=== PATIENT | female | born 1960 | race Caucasian/White ===

== ENCOUNTER 2017-06-16 16:49 | Emergency (ER) | payer MEDICAID, OTHER ==
[2017-06-16] MEDS ORDERED: HYDROmorphone 0.5 MG/0.5 ML Syringe IM ONE (17:22)
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
[2017-06-16] MEDS ORDERED: oxyCODONE 5 MG Tab PO ONE (18:53)
[2017-06-16] MEDS ORDERED: Cyclobenzaprine 10 MG Tab PO ONE (20:51)
[2017-06-16 20:58] VITALS: BP 149/82
--- NOTE | 2017-06-19 09:02 | CR ---
Ankle Min 3V Lt, Foot Comp Min 3V Lt, Knee Min 4V Lt INDICATION: swelling on the lateral aspect of the ankle FINDINGS: Negative left ankle. Bipartite patella. Moderate medial compartment narrowing. Soft tissue swelling overlying the patella. Tiny knee effusion or synovitis. Mild bunion deformity. Degenerative narrowing first MTP joint. Left ankle, foot, and knee otherwise negative.
== END 2017-06-16 21:25 | disposition home or self-care (01) ==
LOC: JP.ED 16:49
DX: S82.002A Unspecified fracture of left patella, initial encounter for closed fracture (principal); S93.401A Sprain of unspecified ligament of right ankle, initial encounter; S20.219A Contusion of unspecified front wall of thorax, initial encounter; S20.01XA Contusion of right breast, initial encounter; S00.33XA Contusion of nose, initial encounter; Z79.82 Long term (current) use of aspirin; Z79.4 Long term (current) use of insulin; Z79.899 Other long term (current) drug therapy; Z91.048 Other nonmedicinal substance allergy status; Z88.2 Allergy status to sulfonamides; Z91.040 Latex allergy status; V43.62XA Car passenger injured in collision with other type car in traffic accident, initial encounter
CPT/HCPCS: 36415; 71250; 73564; 73610; 73630; 80053; 85025; 93005; 96374; 99285; A9270; J1170; 93010; 99284

== ENCOUNTER 2018-09-15 17:55 | Emergency (ER) | payer MEDICAID ==
[2018-09-15 18:08] VITALS: BP 183/94
[2018-09-15] MEDS ORDERED: Sodium Chloride 0.9% 10 ML Syringe FLUSH PRN (18:40)
[2018-09-15] MEDS ORDERED: HYDROmorphone 1 MG/ML Syringe IVPUSH ONE (18:40)
[2018-09-15] MEDS ORDERED: Prochlorperazine 10 MG/2 ML SDV IVPUSH ONE ×2 (18:41→19:42)
[2018-09-15] MEDS ORDERED: Sodium Chloride 0.9% 1,000 ML IV ONE (18:42)
--- NOTE | 2018-09-15 18:57 | EDM.PDOC ---
ED HPI GENERAL MEDICAL PROBLEM - General Chief Complaint: Headache Stated Complaint: HEADACHE Time Seen by Provider: 09/15/18 18:30 Source of Information: Reports: Patient History Limitations: Reports: No Limitations - History of Present Illness INITIAL COMMENTS - FREE TEXT/NARRATIVE: This lady is here for a headache which started last night. The headache is on the right side of her head. She is worried because she's had some strokes in the past but she's not had any kind of stroke symptoms with this. Specifically there's no visual problems she's had not having any weakness anywhere and except her right arm is chronically weak from a previous stroke. She's vomited a few times. Right Head Pain Score (Numeric/FACES): 9 - Related Data Allergies Allergy/AdvReac Type Severity Reaction Status Date / Time latex Allergy Hives Verified 09/15/18 18:07 red dye Allergy Hives Verified 09/15/18 18:07 Sulfa (Sulfonamide Allergy Cannot Verified 09/15/18 18:07 Antibiotics) Remember atorvastatin [From Lipitor] AdvReac Nausea Verified 09/15/18 18:07 Home Meds: Home Meds Aspirin 81 mg PO DAILY 01/31/17 [History] Clopidogrel [Plavix] 75 mg PO DAILY 01/31/17 [History] Cyanocobalamin (Vitamin B12) [Vitamin B12] 100 mcg PO DAILY 01/31/17 [History] Diazepam [Valium] 5 mg PO BID 01/31/17 [History] Estradiol 0.5 mg PO DAILY 01/31/17 [History] Ibuprofen 800 mg PO BID 01/31/17 [History] Insulin Glulisine [Apidra Solostar] 60 unit SQ QPM 01/31/17 [History] Ketoconazole [Ketoconazole 2%] 1 applic TOP BID 01/31/17 [History] Liraglutide [Victoza] 1.8 mg SUBCUT DAILY 01/31/17 [History] Lisinopril 5 mg PO DAILY 01/31/17 [History] Metoprolol Succinate [Toprol XL] 25 mg PO DAILY 01/31/17 [History] Morphine Sulfate 15 mg PO Q6HR PRN MDD 2 per day 01/31/17 [History] Morphine [MS Contin] 30 mg PO BID 01/31/17 [History] Rosuvastatin [Crestor] 40 mg PO DAILY 01/31/17 [History] levETIRAcetam [Keppra] 1,500 mg PO BID 01/31/17 [History] metFORMIN HCl [Metformin HCl] 500 mg PO BID 01/31/17 [History] Past Medical History HEENT History: Reports: Epistaxis, Impaired Vision Cardiovascular History: Reports: Arrhythmia, CAD, High Cholesterol, Hypertension Gastrointestinal History: Reports: Colon Polyp Genitourinary History: Reports: UTI, Recurrent [employer] History: Reports: Musculoskeletal History: Reports: Fracture Neurological History: Reports: CVA, Migraines, Seizure, TIA, Vertigo Endocrine/Metabolic History: Reports: Diabetes, Type II Hematologic History: Reports: Anticoagulation Therapy, Blood Transfusion(s) Oncologic (Cancer) History: Reports: Breast - Infectious Disease History Infectious Disease History: Reports: Chicken Pox, Measles, Mumps - Past Surgical History Head Surgeries/Procedures: Reports: None HEENT Surgical History: Reports: Tonsillectomy Cardiovascular Surgical History: Reports: None GI Surgical History: Reports: Appendectomy, Colonoscopy Female Surgical History: Reports: Hysterectomy Endocrine Surgical History: Reports: None Neurological Surgical History: Reports: None Musculoskeletal Surgical History: Reports: Other (See Below) Other Musculoskeletal Surgeries/Procedures:: screw in middle left finger Oncologic Surgical History: Reports: Lobectomy Dermatological Surgical History: Reports: None Social & Family History - Tobacco Use Smoking Status *Q: Current Every Day Smoker Years of Tobacco use: 40 Packs/Tins Daily: 0.5 Used Tobacco, but Quit: No - Caffeine Use Caffeine Use: Reports: Soda - Recreational Drug Use Recreational Drug Use: No ED ROS GENERAL - Review of Systems Review Of Systems: See Below Constitutional: Reports: No Symptoms HEENT: Reports: No Symptoms Respiratory: Reports: No Symptoms Cardiovascular: Reports: No Symptoms Endocrine: Reports: No Symptoms GI/Abdominal: Reports: Vomiting : Reports: No Symptoms Musculoskeletal: Reports: No Symptoms Skin: Reports: No Symptoms Neurological: Reports: Headache, Pre-Existing Deficit. Denies: Numbness, Weakness, Change in Speech, Gait Disturbance Psychiatric: Reports: No Symptoms Hematologic/Lymphatic: Reports: No Symptoms - Physical Exam Exam: See Below Exam Limited By: No Limitations General Appearance: Alert, WD/WN, Mild Distress Eye Exam: Bilateral Eye: EOMI, Normal Fundi (No papilledema seen) Ears: Normal External Exam Nose: Normal Inspection Throat/Mouth: Normal Inspection, Normal Oropharynx Head Exam: Atraumatic Neck: Normal Inspection Respiratory/Chest: Lungs Clear Cardiovascular: Regular Rate, Rhythm, No Murmur Neuro Exam (Abbreviated): Alert, Oriented, CN II-XII Intact, Normal Cognition, Normal Reflexes, No Motor/Sensory Deficits, Other (Couldn't really do left patellar reflex due to previous injury) Extremities: Normal Inspection Psychiatric: Normal Affect Skin Exam: Warm, Dry Course - Vital Signs Last Recorded V/S: Last Vital Signs Temp 36.3 C 09/15/18 18:16 Pulse 97 09/15/18 18:16 Resp 16 09/15/18 18:16 BP 183/94 H 09/15/18 18:16 Pulse Ox 98 09/15/18 18:16 - Orders/Labs/Meds Orders: Active Orders 24 hr Category Date Time Status Head wo Cont [CT] Stat Exams 09/15/18 18:42 Taken Sodium Chloride 0.9% [Saline Flush] Med 09/15/18 18:40 Active 10 ml FLUSH ASDIRECTED PRN Saline Lock Insert [OM.PC] Urgent Oth 09/15/18 18:40 Ordered Medication Orders Sodium Chloride (Saline Flush) 10 ml FLUSH ASDIRECTED PRN PRN Reason: Keep Vein Open Last Admin: 09/15/18 18:50 Dose: 10 ml Labs: Laboratory Tests 09/15/18 09/15/18 09/15/18 Range/Units 18:55 18:55 18:55 WBC 11.4 H (4.5-11.0) K/uL RBC 5.81 H (3.30-5.50) M/uL Hgb 17.0 H D (12.0-15.0) g/dL Hct 49.6 H (36.0-48.0) % MCV 85 (80-98) fL MCH 29 (27-31) pg MCHC 34 (32-36) % Plt Count 280 (150-400) K/uL Neut % (Auto) 55 (36-66) % Lymph % (Auto) 38 (24-44) % Moffat % (Auto) 5 (2-6) % Eos % (Auto) 2 (2-4) % Baso % (Auto) 0 (0-1) % PT 11.0 (9.5-12.0) sec INR 1.00 (0.80-1.20) Sodium 142 (140-148) mmol/L Potassium 3.4 L (3.6-5.2) mmol/L Chloride 104 (100-108) mmol/L Carbon Dioxide 26 (21-32) mmol/L Anion Gap 15.4 H (5.0-14.0) mmol/L BUN 8 D (7-18) mg/dL Creatinine 0.7 (0.6-1.0) mg/dL Est Cr Clr Drug Dosing 62.16 mL/min Estimated GFR (MDRD) > 60 (>60) Glucose 110 H (74-106) mg/dL Calcium 9.0 (8.5-10.1) mg/dL Meds: Medications Generic Name Dose Route Start Last Admin Trade Name Freq PRN Reason Stop Dose Admin Sodium Chloride 10 ml 09/15/18 18:40 09/15/18 18:50 Saline Flush FLUSH 10 ml ASDIRECTED PRN Administration Keep Vein Open Discontinued Medications Generic Name Dose Route Start Last Admin Trade Name Freq PRN Reason Stop Dose Admin Diphenhydramine HCl 50 mg 09/15/18 19:42 09/15/18 20:11 Benadryl IVPUSH 09/15/18 19:43 50 mg ONETIME ONE Administration Hydromorphone HCl 1 mg 09/15/18 18:40 09/15/18 18:49 Dilaudid IVPUSH 09/15/18 18:41 1 mg ONETIME ONE Administration Sodium Chloride 1,000 mls @ 999 mls/hr 09/15/18 18:42 09/15/18 18:49 Normal Saline IV 09/15/18 19:42 999 mls/hr .BOLUS ONE Administration Prochlorperazine Edisylate 5 mg 09/15/18 18:41 09/15/18 18:49 Compazine IVPUSH 09/15/18 18:42 5 mg ONETIME ONE Administration Prochlorperazine Edisylate 5 mg 09/15/18 19:42 09/15/18 20:12 Compazine IVPUSH 09/15/18 19:43 5 mg ONETIME ONE Administration - Re-Assessments/Exams Free Text/Narrative Re-Assessment/Exam: 09/15/18 18:57 An IV was established she was given Dilaudid 1 mg and 5 mg Compazine as well as [address] IV [address] saline[address] is pending. We'll discuss possibly doing a lumbar puncture when the CT results are back Free Text/Narrative Re-Assessment/Exam: 09/15/18 20:39 This lady received Compazine 5 mg and Benadryl 25 mg IV as well as Dilaudid 1 mg and 1 L IV normal saline. This only gave partial relief of the headache but a second 5 mg dose of the Compazine gave her good relief. She feels like she is ready to go home. The head CT was negative. I discussed with her that the head CT doesn't absolutely completely rule out any bleeding and it loses its sensitivity after 12 hours or so. She didn't want to do an LP. I think if the tomorrow she is headache free then there is nothing to worry about that if the headache continues then she should follow-up with her doctor an LP might be considered. Departure - Departure Time of Disposition: 20:42 Disposition: Home, Self-Care 01 Condition: Fair Clinical Impression: Migraine - Discharge Information Referrals: Bob Zee MD [Primary Care Provider] - Forms: ED Department Discharge Additional Instructions: The medicine he received will continue to make you very sleepy for the next 12 hours or so. You can take your own pain medications also. The head CT was normal but it doesn't absolutely rule out any bleeding. To completely rule out any bleeding he would have to have a lumbar puncture where you run and needle up into the spine and draw some fluid off around the spinal cord to check for any blood. So if you continue to have a headache then you should follow-up with your Dr. or return to the ER and a lumbar puncture could be considered. - My Orders Last 24 Hours: My Active Orders 09/15/18 18:40 Sodium Chloride 0.9% [Saline Flush] 10 ml FLUSH ASDIRECTED PRN Saline Lock Insert [OM.PC] Urgent 09/15/18 18:42 Head wo Cont [CT] Stat - Assessment/Plan Last 24 Hours: My Active Orders 09/15/18 18:40 Sodium Chloride 0.9% [Saline Flush] 10 ml FLUSH ASDIRECTED PRN Saline Lock Insert [OM.PC] Urgent 09/15/18 18:42 Head wo Cont [CT] Stat
[2018-09-15] MEDS ORDERED: diphenhydrAMINE 50 MG/ML SDV IVPUSH ONE (19:42)
== END 2018-09-15 20:58 | disposition home or self-care (01) ==
LOC: JP.ED 17:55
DX: G43.909 Migraine, unspecified, not intractable, without status migrainosus (principal); I10 Essential (primary) hypertension; E11.9 Type 2 diabetes mellitus without complications; F17.210 Nicotine dependence, cigarettes, uncomplicated; Z88.8 Allergy status to other drugs, medicaments and biological substances; Z91.040 Latex allergy status; Z88.2 Allergy status to sulfonamides; Z79.82 Long term (current) use of aspirin; Z79.899 Other long term (current) drug therapy
CPT/HCPCS: 36415; 70450; 80048; 85025; 85610; 96361; 96374; 96375; 96376; 99284; J0780; J1170; J1200; J7030

== ENCOUNTER 2019-05-11 16:24 | Emergency (ER) | payer MEDICAID ==
[2019-05-11 17:38] VITALS: BP 184/95; PULSE 100
[2019-05-11] MEDS ORDERED: Ketorolac 60 MG/2 ML SDV IM ONE (18:07)
[2019-05-11] MEDS ORDERED: Cyclobenzaprine 10 MG Tab PO ONE (18:07)
[2019-05-11] MEDS ORDERED: Acetaminophen 500 MG Tab PO ONE (18:07)
--- NOTE | 2019-05-11 18:16 | EDM.PDOC ---
ED HPI GENERAL MEDICAL PROBLEM - General Chief Complaint: Neck Problem Stated Complaint: PULLED MUSCLES IN NECK AND BACK Time Seen by Provider: 05/11/19 17:55 Source of Information: Reports: Patient, Old Records History Limitations: Reports: No Limitations - History of Present Illness INITIAL COMMENTS - FREE TEXT/NARRATIVE: 58 yo female presents with neck and upper back pain since Monday when she was working pulling weeds in her garden. Has tried some ice and heat so far without relief. Has not been to see her primary for this. Did not fall. Is no longer on the narcotic pain meds that were in her hospital record, stopped in January. Here with her . Not sleeping due to the pain. Onset: Gradual Onset Date: 05/07/19 Duration: Day(s):, Constant Location: Reports: Neck, Back (upper) Quality: Reports: Ache, Other (stiff) Severity: Moderate Improves with: Reports: Rest Worsens with: Reports: Movement Context: Reports: Other (see HPI) Associated Symptoms: Reports: No Other Symptoms Treatments [employer]E [employer] MOULDER: Reports: Other (see below) (heat/cold) - Related Data Allergies Allergy/AdvReac Type Severity Reaction Status Date / Time latex Allergy Hives Verified 05/11/19 17:48 red dye Allergy Hives Verified 05/11/19 17:48 Sulfa (Sulfonamide Allergy Cannot Verified 05/11/19 17:48 Antibiotics) Remember atorvastatin [From Lipitor] AdvReac Nausea Verified 05/11/19 17:48 Home Meds: Home Meds Aspirin 81 mg PO DAILY 01/31/17 [History] Clopidogrel [Plavix] 75 mg PO DAILY 01/31/17 [History] Cyanocobalamin (Vitamin B12) [Vitamin B12] 100 mcg PO DAILY 01/31/17 [History] Diazepam [Valium] 5 mg PO BID 01/31/17 [History] Estradiol 0.5 mg PO DAILY 01/31/17 [History] Ibuprofen 800 mg PO BID 01/31/17 [History] Ketoconazole [Ketoconazole 2%] 1 applic TOP BID 01/31/17 [History] Liraglutide [Victoza] 1.8 mg SUBCUT DAILY 01/31/17 [History] Lisinopril 5 mg PO DAILY 01/31/17 [History] Metoprolol Succinate [Toprol XL] 25 mg PO DAILY 01/31/17 [History] Rosuvastatin [Crestor] 40 mg PO DAILY 01/31/17 [History] levETIRAcetam [Keppra] 1,500 mg PO BID 01/31/17 [History] metFORMIN HCl [Metformin HCl] 500 mg PO BID 01/31/17 [History] Insulin Aspart [NovoLOG] 05/11/19 [History] Insulin Degludec [Tresiba Flextouch U-200] 05/11/19 [History] Past Medical History HEENT History: Reports: Epistaxis, Impaired Vision Cardiovascular History: Reports: Arrhythmia, CAD, High Cholesterol, Hypertension Gastrointestinal History: Reports: Colon Polyp Genitourinary History: Reports: UTI, Recurrent AB 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: Musculoskeletal History: Reports: Fracture Neurological History: Reports: CVA, Migraines, Seizure, TIA, Vertigo Endocrine/Metabolic History: Reports: Diabetes, Type II Hematologic History: Reports: Anticoagulation Therapy, Blood Transfusion(s) Oncologic (Cancer) History: Reports: Breast - Infectious Disease History Infectious Disease History: Reports: Chicken Pox, Measles, Mumps - Past Surgical History Head Surgeries/Procedures: Reports: None HEENT Surgical History: Reports: Tonsillectomy Cardiovascular Surgical History: Reports: None GI Surgical History: Reports: Appendectomy, Colonoscopy Female Surgical History: Reports: Hysterectomy Endocrine Surgical History: Reports: None Neurological Surgical History: Reports: None Musculoskeletal Surgical History: Reports: Other (See Below) Other Musculoskeletal Surgeries/Procedures:: screw in middle left finger Oncologic Surgical History: Reports: Lobectomy Dermatological Surgical History: Reports: None Social & Family History - Tobacco Use Smoking Status *Q: Current Every Day Smoker Years of Tobacco use: 40 Packs/Tins Daily: 0.7 - Caffeine Use Caffeine Use: Reports: Soda ED ROS GENERAL - Review of Systems Review Of Systems: See Below Constitutional: Reports: No Symptoms HEENT: Reports: No Symptoms Respiratory: Reports: No Symptoms Cardiovascular: Reports: No Symptoms GI/Abdominal: Reports: No Symptoms : Reports: No Symptoms Musculoskeletal: Reports: Neck Pain, Back Pain (upper) Skin: Reports: No Symptoms Neurological: Reports: Numbness (of arms, mild L>R, not new) ED EXAM, UPPER BACK/NECK PAIN - Physical Exam Exam: See Below Exam Limited By: No Limitations General Appearance: Alert, WD/WN, No Apparent Distress Back Exam: Normal Inspection, Muscle Spasm (R trapezius). 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 Last Recorded V/S: Last Vital Signs Temp 35.7 C 05/11/19 17:58 Pulse 100 05/11/19 17:58 Resp 16 05/11/19 17:58 BP 184/95 H 05/11/19 17:58 Pulse Ox 100 05/11/19 17:58 - Orders/Labs/Meds Meds: Medications Discontinued Medications Generic Name Dose Route Start Last Admin Trade Name Bertrand PRN Reason Stop Dose Admin Acetaminophen 1,000 mg 05/11/19 18:07 05/11/19 18:23 Tylenol Extra Strength PO 05/11/19 18:08 1,000 mg ONETIME ONE Administration Cyclobenzaprine HCl 10 mg 05/11/19 18:07 05/11/19 18:23 Flexeril PO 05/11/19 18:08 10 mg ONETIME ONE Administration Ketorolac Tromethamine 60 mg 05/11/19 18:07 05/11/19 18:23 Toradol IM 05/11/19 18:08 60 mg ONETIME ONE Administration Departure - Departure Time of Disposition: 19:45 Disposition: Home, Self-Care 01 Condition: Fair Clinical Impression: Trapezius muscle strain Qualifiers: Encounter type: initial encounter Laterality: left Qualified Code(s): S46.812A - Strain of other muscles, fascia and tendons at shoulder and upper arm level, left arm, initial encounter Insomnia Qualifiers: Insomnia type: due to medical condition Qualified Code(s): G47.01 - Insomnia due to medical condition - Discharge Information *PRESCRIPTION DRUG MONITORING PROGRAM REVIEWED*: No *COPY OF PRESCRIPTION DRUG MONITORING REPORT IN PATIENT TRISTEN: No Instructions: Muscle Strain, [id number] Referrals: Bob Zee MD [Primary Care Provider] - Forms: ED Department Discharge Additional Instructions: Massage area with BenGay to help relax the muscles. Take ibuprofen 400 mg every 6hrs with food. Take diazepam at bedtime tomorrow night to help you sleep again if needed. No lifting. Moist heat to muscles. F/U with your provider on Monday if symptoms persist.
[2019-05-11] MEDS ORDERED: Diazepam 5 MG Tab PO ONE (19:29)
== END 2019-05-11 19:54 | disposition home or self-care (01) ==
LOC: JP.ED 16:24
DX: S46.812A Strain of other muscles, fascia and tendons at shoulder and upper arm level, left arm, initial encounter (principal); G47.01 Insomnia due to medical condition; I10 Essential (primary) hypertension; E11.9 Type 2 diabetes mellitus without complications; Z86.73 Personal history of transient ischemic attack (TIA), and cerebral infarction without residual deficits; Z98.890 Other specified postprocedural states; Z90.49 Acquired absence of other specified parts of digestive tract; Z90.710 Acquired absence of both cervix and uterus; F17.210 Nicotine dependence, cigarettes, uncomplicated; Z91.040 Latex allergy status; Z91.018 Allergy to other foods; Z88.2 Allergy status to sulfonamides; Z79.82 Long term (current) use of aspirin; Z79.899 Other long term (current) drug therapy; X50.9XXA Other and unspecified overexertion or strenuous movements or postures, initial encounter
CPT/HCPCS: 96372; 99283; A9270-GY; J1885